=== PATIENT | male | born 1980 | race Caucasian/White ===

== ENCOUNTER 2020-09-15 20:30 | Emergency (ER) | payer MEDICAID ==
[~2020-09-15] VITALS: Ht 182.9 cm; Wt 77.3 kg
[2020-09-15 20:47] VITALS: BP 124/74
[2020-09-15] MEDS ORDERED: IMIQ1CRE10 TOP (22:20)
== END 2020-09-15 22:32 | disposition home or self-care (01) ==
LOC: ER 20:31
DX: A63.0 Anogenital (venereal) warts (principal); Z88.0 Allergy status to penicillin; Z79.899 Other long term (current) drug therapy
CPT/HCPCS: 99283